=== PATIENT | female | born 1950 | race Caucasian/White ===

== ENCOUNTER → 2019-08-25 10:03 | Outpatient (CLI) | payer OTHER, MEDICARE, SELFPAY ==
--- NOTE | 2019-08-25 10:07 | MM_ITS ---
PROCEDURE: MM DIG MAMM BI DX W/CAD CLINICAL INDICATION: Palpable abnormality of the right breast. COMPARISON: [id number] DIG MAMM-DX UNI ADD VIEWS-LT from 12/01/2011 DMSB DIG MAMM-SCREEN BRANDON from 03/02/2015 DMSB DIG MAMM-SCREEN BRANDON W/CAD from 03/19/2017 US BREAST RT COMPLETE from 08/25/2019 TECHNIQUE: Standard images performed along with spot compression views and right breast ultrasound FINDINGS: There is a 2 x 2 cm mass in the central aspect of the right breast slightly superior to the nipple line. The mass is dense with some irregularity of the margins. There is an asymmetric area of density in lateral aspect of the left breast. This is associated with coarse calcification and is not significantly changed compared to 12/01/2011. Asymmetry also noted in the medial aspect of the left breast which did appear to compress out is fibroglandular tissue. Right breast ultrasound: There is an irregular hypoechoic mass in the 12 o'clock region of the right breast corresponding to the mammographic abnormality. The nodule measures 1.6 x 1.8 by 1.8 cm. The margins are angular. There is some enhanced through transmission of sound however. There is some increased vascularity of the nodule. This is highly suspicious for neoplasm. IMPRESSION: 2 cm highly suspicious mass 12 o'clock region of the right breast. Recommend ultrasound-guided mammotome biopsy BI-RAD Category: 5 Highly Suggestive Of Malignancy FOLLOW-UP: BIO Biopsy Recommended (A letter has been sent to the patient regarding results of the study.) Dictated by: Ancelmo Pruett MD 08/25/2019 13:21 Electronically signed by Ancelmo Pruett MD in [place] 08/25/2019 13:21
== END ==
PROVIDERS: PCP Nurse Practitioner Family; Visit Provider Nurse Practitioner Family
DX: N63.41 Unspecified lump in right breast, subareolar; R92.8 Other abnormal and inconclusive findings on diagnostic imaging of breast
CPT/HCPCS: 76641; 77066

== ENCOUNTER → 2019-09-12 09:09 | Outpatient (CLI) | payer MEDICARE, OTHER, SELFPAY ==
--- NOTE | 2019-09-12 09:20 | US_ITS ---
PROCEDURE: US MAMMOTOME BX RT CLINICAL INDICATION: RT BREAST MASS COMPARISON: US BREAST RT COMPLETE from 08/25/2019 MM DIG MAMM BI DX W/CAD from 08/25/2019 FINDINGS: Patient has a suspicious right breast mass as seen on recent mammogram and ultrasound. Oral sedation/analgesia given with 1 mg of alprazolam and 5 mg hydrocodone Following obtaining informed consent and time-out procedure using ultrasound guidance and under aseptic conditions with local anesthesia with buffered lidocaine and deeper anesthesia with lidocaine mixed with epinephrine, a skin shaheed was placed and mammotome needle was inserted. Multiple mammotome biopsies were obtained. A clip was attempted to be placed but did not deploy a. The patient tolerated the procedure well without evidence of immediate complications. Pathology: Invasive well differentiated ductal adenocarcinoma. IMPRESSION: Successful uneventful ultrasound-guided mammotome biopsy of the right breast showing well differentiated ductal adenocarcinoma. Surgical consult suggested. Dictated by: Ancelmo Pruett MD 09/26/2019 13:34 Electronically signed by Ancelmo Pruett MD in [place] 09/26/2019 13:34
== END ==
PROVIDERS: PCP Nurse Practitioner Family; Visit Provider Nurse Practitioner Family
DX: N63.15 Unspecified lump in the right breast, overlapping quadrants (principal)
CPT/HCPCS: 19083; 88305; 88342; 88360; C2618

== ENCOUNTER → 2020-03-19 11:46 | Outpatient (CLI) | payer MEDICARE, SELFPAY ==
[2020-03-19 12:06] LABS: Basophils # 0.1 K/mm3 (0-0.2); Basophils % 1.2 % (0.1-2.0); Eosinophils # 0.3 K/mm3 (0.0-0.4); Eosinophils % 3.6 % (0.1-12.0); Hematocrit 39.3 % (37.0-47.0); Hemoglobin 13.6 g/dL (12.2-16.2); Lymphocytes # 2.8 K/mm3 (0.7-4.5); Lymphocytes % 34.9 % (10-50); Mean Corpuscular HGB Conc 34.5 g/dL (31.8-35.4); Mean Corpuscular Hemoglobin 31.2 pg (27.0-31.2); Mean Corpuscular Volume 90.5 fl (81-99); Mean Platelet Volume 8.3 fl (7.4-10.4); Monocytes # 0.3 K/mm3 (0.1-1.0); Neutrophils # 4.6 K/mm3 (1.8-7.8); Neutrophils % 57.2 % (37.0-80.0); Platelet Count 273 K/mm3 (142-424); Red Blood Count 4.34 M/mm3 (4.20-5.40); Red Cell Distribution Width 12.7 % (11.5-17.5); White Blood Count 8.1 K/mm3 (4.8-10.8)
[2020-03-19 12:52] LABS: Chloride 102 mmol/L (98-107)
[2020-03-19 12:53] LABS: Potassium 5.1 mmoL/L (3.5-5.1); Sodium 136 mmol/L (136-145)
[2020-03-19 12:55] LABS: Alanine Aminotransferase 43 U/L (12-78); Anion Gap 11.1 mEq/L (5-15); Aspartate Amino Transferase 52 U/L (14-36); Blood Urea Nitrogen 15 mg/dl (7-17); Carbon Dioxide 28 mmol/L (22.0-30.0); Estimated Glomerular Filt Rate 100 ml/min (>60); GFR (African American) 121 ML/MIN (>60)
[2020-03-19 12:56] LABS: Albumin Level 4.4 g/dl (3.5-5.0); Albumin/Globulin Ratio 1.8 (1.1-1.8); Alkaline Phosphatase 72 U/L (38-126); Bilirubin,Total 0.7 mg/dl (0.2-1.3); Calcium 10.2 mg/dl (8.4-10.2); Globulin 2.5 g/dL (1.3-3.2); Glucose 88 mg/dl (74-100); Total Protein,Serum 6.9 g/dl (6.3-8.2)
== END ==
PROVIDERS: Visit Provider Nurse Practitioner Family
DX: Z01.818 Encounter for other preprocedural examination (principal); H25.9 Unspecified age-related cataract; I10 Essential (primary) hypertension; E78.5 Hyperlipidemia, unspecified
CPT/HCPCS: 36415; 80053; 85025

== ENCOUNTER → 2021-05-12 09:34 | Outpatient (CLI) | payer MEDICARE, SELFPAY ==
[2021-05-12 10:02] LABS: Basophils # 0.1 K/mm3 (0-0.2); Basophils % 1.3 % (0.1-2.0); Eosinophils # 0.3 K/mm3 (0.0-0.4); Eosinophils % 3.4 % (0.1-12.0); Hematocrit 38.6 % (37.0-47.0); Hemoglobin 13.1 g/dL (12.2-16.2); Lymphocytes # 2.5 K/mm3 (0.7-4.5); Lymphocytes % 33.9 % (10-50); Mean Corpuscular HGB Conc 33.9 g/dL (31.8-35.4); Mean Corpuscular Hemoglobin 30.9 pg (27.0-31.2); Mean Corpuscular Volume 91.2 fl (81-99); Mean Platelet Volume 8.1 fl (7.4-10.4); Monocytes # 0.3 K/mm3 (0.1-1.0); Monocytes % 4.1 % (1.7-9.3); Neutrophils # 4.2 K/mm3 (1.8-7.8); Neutrophils % 57.3 % (37.0-80.0); Platelet Count 305 K/mm3 (142-424); Red Blood Count 4.24 M/mm3 (4.20-5.40); Red Cell Distribution Width 12.8 % (11.5-17.5); White Blood Count 7.3 K/mm3 (4.8-10.8)
[2021-05-12 10:45] LABS: Alanine Aminotransferase 25 U/L (12-78); Albumin Level 4.1 g/dl (3.5-5.0); Albumin/Globulin Ratio 1.5 (1.1-1.8); Alkaline Phosphatase 79 U/L (38-126); Anion Gap 12.8 mEq/L (5-15); Aspartate Amino Transferase 32 U/L (14-36); Bilirubin,Total 0.6 mg/dl (0.2-1.3); Blood Urea Nitrogen 11 mg/dl (7-17); Calcium 9.5 mg/dl (8.4-10.2); Carbon Dioxide 29 mmol/L (22.0-30.0); Chloride 102 mmol/L (98-107); Chol/HDL Ratio 3.5 (1-3.5); Cholesterol 193 mg/dl (140-200); Estimated Glomerular Filt Rate 83 ml/min (>60); GFR (African American) 100 ML/MIN (>60); Globulin 2.8 g/dL (1.3-3.2); Glucose 96 mg/dl (74-100); HDL Cholesterol 55 mg/dl (40-60); Potassium 4.8 mmoL/L (3.5-5.1); Sodium 139 mmol/L (136-145); Total Protein,Serum 6.9 g/dl (6.3-8.2); Triglycerides 137 mg/dl (30-150); VLDL Cholesterol 27 mg/dL (0-40)
[2021-05-12 10:56] LABS: Direct LDL Cholesterol 113.45 mg/dL (100-129)
[2021-05-12 11:15] LABS: Thyroid Stimulating Hormone 3.08 uIU/mL (0.465-4.68)
[2021-05-12 11:36] LABS: Vitamin B12 > 1000 pg/mL (239-931)
== END ==
PROVIDERS: Visit Provider Nurse Practitioner Family
DX: I10 Essential (primary) hypertension (principal); E78.5 Hyperlipidemia, unspecified; R94.6 Abnormal results of thyroid function studies; E53.8 Deficiency of other specified B group vitamins
CPT/HCPCS: 36415; 80053; 80061; 82607; 84443; 85025

== ENCOUNTER 2022-11-13 13:07 | Emergency (ER) | payer MEDICARE, SELFPAY ==
[2022-11-13 13:50] VITALS: BP 149/98; PULSE 83; RESP 20; TEMP 37.2; O2SAT 96; BMI 32.4
--- NOTE | 2022-11-13 13:58 | EXP.UTC ---
Discharge Plan Disposition Patient Disposition: Home, Self-Care Condition: Good Prescriptions Prescriptions: New promethazine 12.5 mg tablet 12.5 mg PO TID PRN (Reason: nausea and vomiting) Qty: 10 0RF No Action bisoprolol fumarate 5 mg tablet 5 mg PO DAILY Label Comments: TAKE 1 TABLET BY MOUTH ONCE DAILY FOR 90 DAYS pravastatin 40 mg tablet PO Label Comments: TAKE 1 TABLET BY MOUTH ONCE DAILY anastrozole 1 mg tablet 1 mg PO DAILY chlordiazepoxide HCl 10 mg capsule 10 mg PO DAILY Label Comments: TAKE 1 CAPSULE BY MOUTH 4 TIMES DAILY Referrals Follow up/Referrals: Orion Khanna MD [Primary Care Provider] - See instructions Activity Restrictions/Add. Instructions Additional Instructions/Restrictions: Drink extra fluids with and between meals. If you have difficulty drinking, try very small amounts of water or suck on ice chips. ? Avoid fruit juices, as these do not replace minerals and can actually increase diarrhea. ? Children and adults can use sports drinks to replenish electrolytes. Younger children and infants should use products formulated for children, like oral rehydration solutions. ? Eat food in small amounts and let your stomach recover. ? Get lots of rest. You may feel tired or weak. ? No greasy or fried foods for the next 24-48 hours BRAT diet Bananas Rice Apples and [place] ? Make sure to drink plenty of liquids ? Return if needed ? Straight to ER if any life threatening symptoms ? Phenergan as prescribed ? Follow up with family doctor in the next 48-72 hours if no improvement or any worsening of symptoms Clinical Impressions Clinical Impression: Nausea and vomiting Qualifiers: Vomiting type: unspecified Qualified Code(s): R11.2 - Nausea with vomiting, unspecified Stand Alone Forms Stand Alone Forms: Work/School Release Instructions Patient Instructions: Nausea and Vomiting-Adult, Promethazine Discharge ED Provider: Nohemy Aguilar [facility] General Stated complaint: Vomitting,cough,congestion,sore throat Time Seen by Provider: 11/13/22 13:58 History of Present Illness Provider Complaint: Patient states that over the weekend she was having N/V sore throat and nasal congestion States that she has been making herself drink fluids to keep herself hydrated States today vomiting is much better but still having some nausea States that she wanted to get something for the nausea and get tested for COVID her is sick and she didnt want to pass something on to him Related Data Home Medications Medication Instructions Recorded Confirmed bisoprolol fumarate 5 mg tablet 5 mg PO DAILY . 09/16/19 11/13/22 pravastatin 40 mg tablet PO 09/16/19 09/16/19 anastrozole 1 mg tablet 1 mg PO DAILY , 11/13/22 11/13/22 chlordiazepoxide HCl 10 mg capsule 10 mg PO DAILY . 11/13/22 11/13/22 Previous Rx's Medication Instructions Recorded promethazine 12.5 mg tablet 12.5 mg PO TID PRN nausea and 11/13/22 vomiting #10 tabs Allergies Allergy/AdvReac Type Severity Reaction Status Date / Time No Known Allergies Allergy Verified 11/13/22 14:04 [facility] Disclaimer: The information contained in this section may have been updated after the patient was seen, as this information can be updated by other users. Social History Smoking Status: Never smoker alcohol intake: never current occupational status: employed Travel in the last 8 weeks: None ROS Obtained: Yes All systems reviewed & no additional complaints except as documented and Yes Systems reviewed as appropriate & no additional complaints except as documented ENT Ears, Nose, Mouth, and Throat: Reports system reviewed and no additional complaints, except as documented, Reports as per HPI and Reports sore throat Cardiovascular Cardiovascular: Reports system reviewed and no additional complaints, exce
[2022-11-13 14:05] LABS: UTC Strep Screen (Rapid) Negative (Negative)
--- NOTE | 2022-11-13 15:04 | PC.NURSE ---
Nohemy Aguilar mentioned to pt that she should go to the ER and pt refused to go.
[2022-11-13 15:06] VITALS: BP 149/98; PULSE 83; RESP 20; TEMP 37.2; O2SAT 96
== END 2022-11-13 15:05 | disposition home or self-care (01) ==
PROVIDERS: Emergency Provider Nurse Practitioner; PCP Internal Medicine Adolescent Medicine
DX: R05.1 Acute cough (principal); R07.0 Pain in throat; Z20.822 Contact with and (suspected) exposure to COVID-19; R11.2 Nausea with vomiting, unspecified
CPT/HCPCS: G0463; 87880; 99212; 99214; C9803; U0003; U0005

== ENCOUNTER 2025-06-12 14:30 | Outpatient (CLI) | payer MEDICARE, OTHER, SELFPAY ==
--- OUTSIDE RECORDS SUMMARY | 2025-06-12 14:36 | XMS_ITS | Clinical Summary ---
Author Organization Healthcare Address [address] [place] [address] Care Team Providers Care Set Up Worker Name Role Phone Orion Khanna MD Primary Care Provider [phone] Allergies Active Allergy Reactions Criticality Noted Date Comments Wound Dressing Adhesive Unknown - Patien t states they do not know rxn details Low 10/10/2019 Medications bisoprolol (Zebeta) 5 MG tablet Take 1 tablet (5 mg) by mouth 1 (one) time each day. 02/20/2021 Active diphenhydrAMINE (Sominex) 25 MG tablet 1 tab(s) orally once a day (at bedtime) Active famotidine (Pepcid) 20 MG tablet 1 tab(s) orally once a day (at bedtime), As Needed Active ibuprofen 200 MG tablet 1 tab(s) orally every 6 hours, As Needed Active pravastatin (Pravachol) 40 MG tablet 1 tab(s) orally once a day (at bedtime) Active ASPIRIN 81 PO Take 81 mg by mouth 1 (one) time each day. Active calcium citrate-vitamin D 250-100 MG-UNIT tablet Take 1 tablet by mouth 2 (two) times a day. Active chlordiazePOXID E (Librium) 10 MG capsule TAKE 1 CAPSULE BY MOUTH EVERY 6 HOURS NEEDED 11/07/2021 Active anastrozole (Arimidex) 1 MG chemo tablet Take 1 tablet (1 mg total) by mouth 1 (one) time each day. Swallow whole with a drink of water. 90 tablet 3 05/15/2023 Active Social History Tobacco Use Types Packs/Day Years Used Date Smoking Tobacco: Never Passive Smoke Exposure: Yes Smokeless Tobacco: Never Tobacco Cessation:Counseling Given: Not Answered Alcohol Use Standard Drinks/Week Comments Never 0 (1 standard drink = 0.6 oz pur e alcohol) PHQ-2 Answer Date Recorded Patient Health Questionnaire-2 Score 0 05/19/2024 Comments No Sex and Gender Information Value Date Recorded Sex Assigned at Not on file Legal Sex Female 7:40 PM EDT Gender Identity Not on file Sexual Orientation Not on file Last Filed Vital Signs Vital Sign Reading Time Taken Comments Blood Pressure 159/92 05/19/2024 1:38 PM EDT Pulse 75 05/19/2024 1:38 PM EDT Temperature 36.6 C (97.9 F) 05/19/2024 1:38 PM EDT Respiratory Rate 16 05/19/2024 1:38 PM EDT Oxygen Saturation - - Inhaled Oxygen Concentration - - Weight 77.9 kg (171 lb 11.8 oz) 05/19/2024 1:38 PM EDT Height 152.4 cm (5') 05/19/2024 1:38 PM EDT Body Mass Index 33.54 05/19/2024 1:38 PM EDT Plan of Treatment Upcoming Encounters Date Type Department Care Team (Late st Contact Info) Description 07/09/2025 1:00 PM EDT Appointment [facility] [address] [place] [address] 07/09/2025 2:00 PM EDT Office Visit [facility] [address] [facility] [place] [address] Gabriella Lam, CARMINE [address] [address] Health Maintenance Due Date Last Done Comments [facility]-Bone Density Scan 1950 [facility]-Hepatitis C Screening 1950 [facility]-Medicare Annual Wellness (AWV) 1950 [facility]-/Child/Adol SDOH Screenings 1950 [facility]- SDOH Screenings 1970 [facility]-Adult SDOH Screenings 1970 [facility]-DTaP,Tdap,and Td Vaccines (1 - Tdap) 1971 CT Colonography 1997 Colonoscopy 1997 FIT-DNA 1997 FIT 1997 FOBT 1997 Sigmoidoscopy 1997 [facility]-Colorectal Cancer Screening 1997 [facility]-Zoster Vaccines (1 of 2) 2002 [id number] Vaccine ( - season) 2025 10/28/2021, 02/17/2021, 01/20/2021 [facility]-Influenza Vaccine (#1) 05/11/202506/11, 08/24/2022, 06/09/2019, Additional history exists [facility]-Depression Screening 05/19/2025 05/19/2024 [facility]-RSV Vaccine: 60+ Years or (1 - 1-dose 75+ series) 2027 [facility]-Pneumococcal Vaccine: 50+ Years Completed 05/12/2021, 06/09/2019 [facility]-Obesity Intervention Completed 05/15/2023 HPV Vaccines Aged Out No longer eligi ble based on patient's age to complete this topic [facility]-HIB Vaccines Aged Out No longer e ligible based on patient's age to complete this topic [facility]-Hepatitis A Vaccines Aged Out No longer eligible based on patient's age to complete this topic [facility]-IPV Vaccines Aged Out No longer e ligible based on patient's age to complete this topic [facility]-Rotavirus Vaccines Aged Out No lo nger eligible based on patient's age to complete this topic Insurance MEDICARE [facility] Care Teams Set Up Worker Relationship Specialty Start Date End Date Orion Khanna MD [address] [place], [place] [id number] PCP - General 01/21/21
--- NOTE | 2025-06-12 14:38 | XR_ITS ---
FINAL REPORT CLINICAL HISTORY: ACUTE PAIN RT KNEE locked up when running up/down a hill COMPARISON: None FINDINGS: Three views of the right knee were obtained. There is no acute fracture or dislocation. Mild narrowing of the medial compartment joint space. Small osteophytes are noted along the undersurface of the patella. There is no acute soft tissue abnormality. IMPRESSION: Mild osteoarthritis without acute abnormality identified. Reviewed, Interpreted and Dictated by Neftali Vogt MD Transcribed by Gemini Ortiz Authenticated and [facility]
== END 2025-06-12 23:59 | disposition home or self-care (01) ==
LOC: RAD 14:34
PROVIDERS: PCP Nurse Practitioner Family; Visit Provider Nurse Practitioner Family
DX: M17.11 Unilateral primary osteoarthritis, right knee (principal)
CPT/HCPCS: 73562